=== PATIENT | female | born 1980 | race Caucasian/White ===

== ENCOUNTER 2016-12-23 19:01 | Inpatient (IN) | payer MEDICAID ==
[~2016-12-23] VITALS: Ht 167.6 cm; Wt 75.7 kg
[~2016-12-23 19:01] MED LIST: ALBUAER3 IN
[2016-12-23 20:21] LABS: Basophils # (auto) 0.1 uL; Basophils % (auto) 0.9 % (0.0-2.0); Eosinophils # (auto) 0.1 uL; Eosinophils % (auto) 0.8 % (0.0-7.0); Hematocrit 43.9 % (36.0-46.0); Hemoglobin 14.9 g/dL (12.2-16.2); Lymphocytes # (auto) 1.5 uL; Lymphocytes % (auto) 19.2 % (10.0-50.0); Mean Corpuscular Hemoglobin 29.5 pg (28.0-32.0); Mean Corpuscular Hgb Conc. 33.9 g/dL (32.0-36.0); Mean Corpuscular Volume 87.1 fL (80.0-100.0); Monocytes # (auto) 0.5 uL; Neutrophils # (auto) 5.8 uL; Neutrophils % (auto) 73.1 % (37.0-80.0); Nucleated Red Blood Cells % 0.1 %; Platelet Count (auto) 135 10^3/uL (140-450); Red Blood Cells 5.04 10^6/uL (4.0-5.20); Red Cell Distribution Width 14.9 % (11.8-14.3); White Blood Cell 7.9 10^3/uL (4.4-10.8)
[2016-12-23 20:35] LABS: Albumin 2.8 g/dL (3.4-5.0); BUN/Creatinine Ratio 11.9; Magnesium 2.1 mg/dL (1.6-2.6); Potassium 3.2 mmol/L (3.5-5.1); Total Protein 6.2 g/dL (6.4-8.2)
[2016-12-23] MEDS ORDERED: ASPirin 81 mg TAB PO ONE (21:00)
[2016-12-23] MEDS ORDERED: FUROSEMIDE 40 MG/4 ML VIAL IV ONE (21:30)
[2016-12-23 21:31] LABS: Urine Bacteria NONE SEEN /hpf (None Seen); Urine Blood Negative /uL (Negative); Urine Mucus FEW (None Seen); Urine Specific Gravity 1.021 (1.001-1.035); Urine WBC 2 /hpf (0 - 5)
[2016-12-23] MEDS ORDERED: POTASSIUM CHL 20 Meq TABLET PO ONE (21:45)
[2016-12-23] MEDS ORDERED: LORazepam 2MG/ML-1ML VIAL IV ONE ×2 (22:00)
[2016-12-23] MEDS ORDERED: MORPHINE SULFATE 10 MG/ML INJ 1ML SDV IV PRN (22:15)
[2016-12-23] MEDS ORDERED: HYDROcodone-ACET 5/325MG TAB PO PRN (22:15)
[2016-12-23] MEDS ORDERED: ACETAMINOPHEN 325 MG TAB PO PRN (22:15)
[2016-12-23] MEDS ORDERED: NITROGLYCERIN 0.4 MG SL TAB SL PRN (22:15)
[2016-12-23] MEDS ORDERED: ADEMPAS 2.5 MG PO SCH (22:15)
[2016-12-23] MEDS ORDERED: ENOXAPARIN SOD 100 MG/1 ML SYRINGE SC ONE (22:15)
[2016-12-23] MEDS ORDERED: ONDANSETRON HCL 4 MG/2 ML VIAL IV PRN (22:15)
[2016-12-23 22:30] VITALS: BP 111/75
[2016-12-24] MEDS: ALBUTEROL SULF 2.5 MG/0.5ML(0.5%) NEB SOLN NEB PRN ×3 (00:52→20:00)
[2016-12-24 05:15] LABS: Albumin 2.5 g/dL (3.4-5.0); BUN/Creatinine Ratio 11.1; Bilirubin, Total 0.7 mg/dL (0.2-1.0); Calcium 7.7 mg/dL (8.5-10.1); Potassium 3.2 mmol/L (3.5-5.1); Total Protein 5.4 g/dL (6.4-8.2)
[2016-12-24 05:38] LABS: Basophils # (auto) 0 uL; Basophils % (auto) 0.6 % (0.0-2.0); Eosinophils # (auto) 0.1 uL; Eosinophils % (auto) 1.1 % (0.0-7.0); Hematocrit 40.1 % (36.0-46.0); Hemoglobin 13.3 g/dL (12.2-16.2); Lymphocytes % (auto) 22.9 % (10.0-50.0); Mean Corpuscular Hemoglobin 28.8 pg (28.0-32.0); Mean Corpuscular Hgb Conc. 33.1 g/dL (32.0-36.0); Mean Corpuscular Volume 86.8 fL (80.0-100.0); Monocytes # (auto) 0.7 uL; Monocytes % (auto) 7.7 % (0.0-12.0); Neutrophils # (auto) 5.9 uL; Neutrophils % (auto) 67.7 % (37.0-80.0); Nucleated Red Blood Cells % 0.1 %; Platelet Count (auto) 126 10^3/uL (140-450); Red Blood Cells 4.62 10^6/uL (4.0-5.20); Red Cell Distribution Width 15.2 % (11.8-14.3); White Blood Cell 8.8 10^3/uL (4.4-10.8)
[2016-12-24] MEDS: [UNRECOGNIZED DRUG - OTHER] PO SCH (09:27)
[2016-12-24] MEDS: ENOXAPARIN SOD 40 MG/0.4 ML SYRINGE SC SCH (09:27)
[2016-12-24] MEDS: SPIRONOLACTONE 25 MG TAB PO SCH (09:27)
[2016-12-24] MEDS: ASPirin 81 mg TAB PO SCH (09:27)
[2016-12-24] MEDS: FUROSEMIDE 40 MG TAB PO SCH (09:27)
[2016-12-24] MEDS: FAMOTIDINE 20 MG TAB PO SCH ×2 (09:27→22:29)
[2016-12-24] MEDS ORDERED: diphenhdrAMINE HCL 50 MG/1 ML VL ONE (14:08)
[2016-12-24] MEDS: diphenhdrAMINE HCL 50 MG/1 ML VL IV PRN (14:57)
[2016-12-24] MEDS ORDERED: POTASSIUM CHL 10% (20 MEQ/15ML) 15ml ORAL SOLN PO ONE (17:15)
[2016-12-25] MEDS: LORazepam 2MG/ML-1ML VIAL IV PRN ×2 (00:14→17:15)
[2016-12-25] MEDS: ALBUTEROL SULF 2.5 MG/0.5ML(0.5%) NEB SOLN NEB PRN ×3 (05:45→21:58)
[2016-12-25 05:59] LABS: Basophils # (auto) 0 uL; Basophils % (auto) 0.7 % (0.0-2.0); Eosinophils # (auto) 0.1 uL; Eosinophils % (auto) 2.2 % (0.0-7.0); Hematocrit 40.2 % (36.0-46.0); Hemoglobin 13.3 g/dL (12.2-16.2); Lymphocytes # (auto) 1.7 uL; Lymphocytes % (auto) 25.3 % (10.0-50.0); Mean Corpuscular Hemoglobin 28.7 pg (28.0-32.0); Mean Corpuscular Hgb Conc. 33.2 g/dL (32.0-36.0); Mean Corpuscular Volume 86.5 fL (80.0-100.0); Monocytes # (auto) 0.5 uL; Monocytes % (auto) 7.5 % (0.0-12.0); Neutrophils # (auto) 4.3 uL; Neutrophils % (auto) 64.3 % (37.0-80.0); Platelet Count (auto) 129 10^3/uL (140-450); Red Blood Cells 4.64 10^6/uL (4.0-5.20); Red Cell Distribution Width 15.4 % (11.8-14.3); White Blood Cell 6.7 10^3/uL (4.4-10.8)
[2016-12-25 06:16] LABS: BUN/Creatinine Ratio 17.2; Calcium 7.8 mg/dL (8.5-10.1); Magnesium 2.1 mg/dL (1.6-2.6); Potassium 3.6 mmol/L (3.5-5.1)
[2016-12-25] MEDS: FUROSEMIDE 40 MG TAB PO SCH (10:00)
[2016-12-25] MEDS: SPIRONOLACTONE 25 MG TAB PO SCH (10:00)
[2016-12-25 10:09] LABS: INR 1.17 (0.9-1.15); Partial Thromboplastin Time 29.9 sec (22.64-33.71); Prothrombin Time 12.8 sec (9.37-12.3)
[2016-12-25] MEDS: ASPirin 81 mg TAB PO SCH (10:34)
[2016-12-25] MEDS: [UNRECOGNIZED DRUG - OTHER] PO SCH (10:34)
[2016-12-25] MEDS: FAMOTIDINE 20 MG TAB PO SCH ×2 (10:34→22:04)
[2016-12-25] MEDS: ENOXAPARIN SOD 40 MG/0.4 ML SYRINGE SC SCH (10:35)
[2016-12-25 11:01] LABS: Alcohol, Urine < 3.0 mg/dL (0-5); Amphetamine Screen, Urine POSITIVE (NEGATIVE); Barbiturate Scree,Urine NEGATIVE (NEGATIVE); Benzodiazephine Screen, Urine NEGATIVE (NEGATIVE); Cannabinoid Screen, Urine NEGATIVE (NEGATIVE); Cocaine Screen, Urine NEGATIVE (NEGATIVE); Opiate Scree,Urine NEGATIVE (NEGATIVE); Phencyclidine Screen, Urine NEGATIVE (NEGATIVE)
[2016-12-25 13:54] VITALS: BP 83/57
[2016-12-25] MEDS: diphenhdrAMINE HCL 50 MG/1 ML VL IV PRN (15:18)
[2016-12-26] VITALS (7 sets, daily range): BP systolic 91–100; BP diastolic 50–66
[2016-12-26] MEDS: TEMAZEPAM 15 MG CAP PO PRN (02:22)
[2016-12-26 05:24] LABS: Basophils # (auto) 0.1 uL; Basophils % (auto) 1.4 % (0.0-2.0); Eosinophils # (auto) 0.1 uL; Eosinophils % (auto) 2.1 % (0.0-7.0); Hematocrit 39.6 % (36.0-46.0); Hemoglobin 13.3 g/dL (12.2-16.2); Lymphocytes # (auto) 1.9 uL; Lymphocytes % (auto) 28.4 % (10.0-50.0); Mean Corpuscular Hgb Conc. 33.5 g/dL (32.0-36.0); Mean Corpuscular Volume 86.7 fL (80.0-100.0); Monocytes # (auto) 0.5 uL; Monocytes % (auto) 7.8 % (0.0-12.0); Neutrophils % (auto) 60.3 % (37.0-80.0); Nucleated Red Blood Cells % 0.1 %; Platelet Count (auto) 135 10^3/uL (140-450); Red Blood Cells 4.57 10^6/uL (4.0-5.20); Red Cell Distribution Width 15.4 % (11.8-14.3); White Blood Cell 6.6 10^3/uL (4.4-10.8)
[2016-12-26 05:47] LABS: Calcium 7.9 mg/dL (8.5-10.1); Magnesium 2.2 mg/dL (1.6-2.6); Potassium 3.7 mmol/L (3.5-5.1)
[2016-12-26] MEDS: SPIRONOLACTONE 25 MG TAB PO SCH (09:55)
[2016-12-26] MEDS: ENOXAPARIN SOD 40 MG/0.4 ML SYRINGE SC SCH (09:55)
[2016-12-26] MEDS: FAMOTIDINE 20 MG TAB PO SCH ×2 (09:55→22:10)
[2016-12-26] MEDS: FUROSEMIDE 40 MG TAB PO SCH (09:55)
[2016-12-26] MEDS: ASPirin 81 mg TAB PO SCH (09:55)
[2016-12-26] MEDS: [UNRECOGNIZED DRUG - OTHER] PO SCH (10:23)
[2016-12-26] MEDS: LORazepam 2MG/ML-1ML VIAL IV PRN ×2 (12:51→20:54)
[2016-12-26] MEDS ORDERED: IOHEXOL 300 MG/ML 100ML BOTTLE IJ ONE (14:42)
[2016-12-26] MEDS ORDERED: IOHEXOL 350 MG/ML 100ML IJ ONE (14:43)
[2016-12-27] VITALS (11 sets, daily range): BP systolic 85–100; BP diastolic 49–75
[2016-12-27] MEDS ORDERED: FUROSEMIDE 20 MG/2 ML VIAL ONE (03:51)
[2016-12-27] MEDS ORDERED: METOPROLOL TARTRATE 1MG/1ML-5ML VIAL IV ONE ×2 (03:53→04:00)
[2016-12-27] MEDS ORDERED: FUROSEMIDE 20 MG/2 ML VIAL IV ONE (04:00)
[2016-12-27 04:56] LABS: Basophils # (auto) 0 uL; Basophils % (auto) 0.7 % (0.0-2.0); Eosinophils # (auto) 0.1 uL; Hematocrit 40.8 % (36.0-46.0); Hemoglobin 13.4 g/dL (12.2-16.2); Lymphocytes # (auto) 1.9 uL; Lymphocytes % (auto) 27.5 % (10.0-50.0); Mean Corpuscular Hemoglobin 28.7 pg (28.0-32.0); Mean Corpuscular Hgb Conc. 32.9 g/dL (32.0-36.0); Mean Corpuscular Volume 87.1 fL (80.0-100.0); Monocytes # (auto) 0.5 uL; Neutrophils # (auto) 4.3 uL; Neutrophils % (auto) 62.8 % (37.0-80.0); Nucleated Red Blood Cells % 0.1 %; Platelet Count (auto) 143 10^3/uL (140-450); Red Blood Cells 4.68 10^6/uL (4.0-5.20); Red Cell Distribution Width 15.3 % (11.8-14.3); White Blood Cell 6.8 10^3/uL (4.4-10.8)
[2016-12-27 05:06] LABS: BUN/Creatinine Ratio 25.8; Potassium 3.9 mmol/L (3.5-5.1)
[2016-12-27 05:15] LABS: CRP High Sensitivity 0.25 mg/dL (< 0.3)
[2016-12-27] MEDS: FAMOTIDINE 20 MG TAB PO SCH ×2 (09:37→22:09)
[2016-12-27] MEDS: ASPirin 81 mg TAB PO SCH (09:37)
[2016-12-27] MEDS: FUROSEMIDE 40 MG TAB PO SCH (09:38)
[2016-12-27] MEDS: [UNRECOGNIZED DRUG - OTHER] PO SCH (09:42)
[2016-12-27] MEDS: SPIRONOLACTONE 25 MG TAB PO SCH (09:42)
[2016-12-27] MEDS: ENOXAPARIN SOD 40 MG/0.4 ML SYRINGE SC SCH (09:43)
[2016-12-27] MEDS: ALBUTEROL SULF 2.5 MG/0.5ML(0.5%) NEB SOLN NEB PRN ×3 (12:00→18:51)
[2016-12-27] MEDS ORDERED: ADEMPAS 2.5 MG PO SCH ×2 (14:00)
[2016-12-27] MEDS: ADEMPAS 2.5 MG PO SCH ×2 (14:43→22:09)
[2016-12-27] MEDS: TEMAZEPAM 15 MG CAP PO PRN (20:19)
[2016-12-28] VITALS (56 sets, daily range): BP systolic 84–113; BP diastolic 41–73
[2016-12-28] MEDS: LORazepam 2MG/ML-1ML VIAL IV PRN ×2 (01:30→22:41)
[2016-12-28] MEDS: NOREPINEPHRINE 8 MG/250ML KIT 250 ML IV SCH (05:00)
[2016-12-28] MEDS: ADEMPAS 2.5 MG PO SCH ×3 (06:04→22:13)
[2016-12-28] MEDS: SPIRONOLACTONE 25 MG TAB PO SCH (10:41)
[2016-12-28] MEDS: ASPirin 81 mg TAB PO SCH (10:41)
[2016-12-28] MEDS: FAMOTIDINE 20 MG TAB PO SCH ×2 (10:41→22:13)
[2016-12-28] MEDS: FUROSEMIDE 40 MG TAB PO SCH (10:41)
[2016-12-28] MEDS: ENOXAPARIN SOD 40 MG/0.4 ML SYRINGE SC SCH (10:42)
[2016-12-28] MEDS: [UNRECOGNIZED DRUG - OTHER] PO SCH (10:49)
[2016-12-28] MEDS ORDERED: ALPRAZolam 0.25 MG TAB ONE (13:42)
[2016-12-28] MEDS: ALBUTEROL SULF 2.5 MG/0.5ML(0.5%) NEB SOLN NEB PRN (13:50)
[2016-12-28] MEDS: ALPRAZolam 0.25 MG TAB PO SCH ×2 (13:52→22:13)
[2016-12-29] VITALS (85 sets, daily range): BP systolic 82–137; BP diastolic 33–80
[2016-12-29 00:44] LABS: BUN/Creatinine Ratio 15.4; Magnesium 2.3 mg/dL (1.6-2.6); Potassium 3.3 mmol/L (3.5-5.1)
[2016-12-29] MEDS: ADEMPAS 2.5 MG PO SCH ×3 (06:00→22:07)
[2016-12-29] MEDS: ALPRAZolam 0.25 MG TAB PO SCH (06:00)
[2016-12-29] MEDS: NOREPINEPHRINE 8 MG/250ML KIT 250 ML IV SCH ×2 (06:10→21:35)
[2016-12-29] MEDS: [UNRECOGNIZED DRUG - OTHER] PO SCH (10:00)
[2016-12-29] MEDS: SPIRONOLACTONE 25 MG TAB PO SCH (10:47)
[2016-12-29] MEDS: ASPirin 81 mg TAB PO SCH (10:48)
[2016-12-29] MEDS: FUROSEMIDE 40 MG TAB PO SCH (10:48)
[2016-12-29] MEDS: FAMOTIDINE 20 MG TAB PO SCH ×2 (10:48→22:07)
[2016-12-29] MEDS: ALPRAZolam 0.25 MG TAB PO PRN ×2 (10:49→19:57)
[2016-12-29] MEDS: ENOXAPARIN SOD 40 MG/0.4 ML SYRINGE SC SCH (13:17)
[2016-12-29] MEDS: ALBUTEROL SULF 2.5 MG/0.5ML(0.5%) NEB SOLN NEB PRN ×2 (14:00→18:00)
[2016-12-29] MEDS ORDERED: ALBUMIN 25% 100 ML IV SCH (14:00)
[2016-12-29] MEDS: PIPERACILLIN-TAZO 4.5GM 100 ML IV SCH ×2 (15:17→22:07)
[2016-12-29] MEDS: diphenhdrAMINE HCL 50 MG/1 ML VL IV PRN ×2 (15:47→22:36)
[2016-12-29] MEDS ORDERED: RIOC1TAB9 PO (19:39)
[2016-12-29] MEDS ORDERED: FURO40TA PO (19:39)
[2016-12-29] MEDS ORDERED: MACI1TAB2 PO (19:39)
[2016-12-29] MEDS ORDERED: DILTIAZEM HCL 25 MG/5 ML VIAL IV ONE (22:15)
[2016-12-30] VITALS (84 sets, daily range): BP systolic 84–131; BP diastolic 23–78
[2016-12-30] MEDS: ADEMPAS 2.5 MG PO SCH ×3 (06:09→22:09)
[2016-12-30] MEDS: PIPERACILLIN-TAZO 4.5GM 100 ML IV SCH ×3 (06:19→22:09)
[2016-12-30] MEDS: ALBUMIN 25% 100 ML IV SCH ×3 (08:37→22:11)
[2016-12-30] MEDS ORDERED: LIDOCAINE 1% HCL (LOCAL ANESTH.) INJ 20ML MDV ONE (09:56)
[2016-12-30] MEDS: ENOXAPARIN SOD 40 MG/0.4 ML SYRINGE SC SCH (10:00)
[2016-12-30] MEDS: [UNRECOGNIZED DRUG - OTHER] PO SCH (13:11)
[2016-12-30] MEDS: FAMOTIDINE 20 MG TAB PO SCH ×2 (13:12→22:09)
[2016-12-30] MEDS: FUROSEMIDE 40 MG TAB PO SCH (13:12)
[2016-12-30] MEDS: ASPirin 81 mg TAB PO SCH (13:12)
[2016-12-30] MEDS: SPIRONOLACTONE 25 MG TAB PO SCH (13:13)
[2016-12-30] MEDS: ALPRAZolam 0.25 MG TAB PO PRN (22:20)
[2016-12-31] VITALS (39 sets, daily range): BP systolic 76–124; BP diastolic 14–88
[2016-12-31] MEDS: TEMAZEPAM 15 MG CAP PO PRN (02:24)
[2016-12-31] MEDS: NOREPINEPHRINE 8 MG/250ML KIT 250 ML IV SCH ×2 (05:02→17:00)
[2016-12-31] MEDS: PIPERACILLIN-TAZO 4.5GM 100 ML IV SCH ×3 (06:14→23:00)
[2016-12-31] MEDS: ADEMPAS 2.5 MG PO SCH ×3 (06:14→23:00)
[2016-12-31] MEDS ORDERED: SPIR25TA88 PO (08:12)
[2016-12-31] MEDS ORDERED: OMEP20CA74 OR (08:12)
[2016-12-31] MEDS: ENOXAPARIN SOD 40 MG/0.4 ML SYRINGE SC SCH (09:53)
[2016-12-31] MEDS: diphenhdrAMINE HCL 50 MG/1 ML VL IV PRN ×2 (09:53→23:07)
[2016-12-31] MEDS: SPIRONOLACTONE 25 MG TAB PO SCH (09:54)
[2016-12-31] MEDS: FAMOTIDINE 20 MG TAB PO SCH ×2 (09:54→23:00)
[2016-12-31] MEDS: ASPirin 81 mg TAB PO SCH (09:54)
[2016-12-31] MEDS: [UNRECOGNIZED DRUG - OTHER] PO SCH (09:54)
[2016-12-31] MEDS ORDERED: MORPHINE SULFATE 10 MG/ML INJ 1ML SDV IV PRN (16:15)
[2016-12-31] MEDS ORDERED: TEMAZEPAM 15 MG CAP PO PRN (16:15)
[2016-12-31] MEDS ORDERED: HYDROcodone-ACET 5/325MG TAB PO PRN (16:15)
[2016-12-31 20:12] LABS: Basophils # (auto) 0.1 uL; Basophils % (auto) 1.1 % (0.0-2.0); Eosinophils # (auto) 0.3 uL; Eosinophils % (auto) 2.4 % (0.0-7.0); Hematocrit 42.8 % (36.0-46.0); Hemoglobin 14.1 g/dL (12.2-16.2); Lymphocytes # (auto) 2.5 uL; Lymphocytes % (auto) 20.9 % (10.0-50.0); Mean Corpuscular Hemoglobin 28.8 pg (28.0-32.0); Mean Corpuscular Hgb Conc. 32.9 g/dL (32.0-36.0); Mean Corpuscular Volume 87.7 fL (80.0-100.0); Monocytes # (auto) 0.7 uL; Monocytes % (auto) 6.1 % (0.0-12.0); Neutrophils # (auto) 8.2 uL; Neutrophils % (auto) 69.5 % (37.0-80.0); Platelet Count (auto) 194 10^3/uL (140-450); Red Blood Cells 4.88 10^6/uL (4.0-5.20); Red Cell Distribution Width 15.4 % (11.8-14.3); White Blood Cell 11.8 10^3/uL (4.4-10.8)
[2016-12-31] MEDS: ALBUTEROL SULF 2.5 MG/0.5ML(0.5%) NEB SOLN NEB PRN (20:19)
[2016-12-31 20:31] LABS: BUN/Creatinine Ratio 22.2; Calcium 8.1 mg/dL (8.5-10.1); Magnesium 2.3 mg/dL (1.6-2.6); Potassium 3.8 mmol/L (3.5-5.1)
[2016-12-31] MEDS: ALPRAZolam 0.25 MG TAB PO PRN (23:30)
[2017-01-01] VITALS (82 sets, daily range): BP systolic 68–143; BP diastolic 22–88
[2017-01-01] MEDS: diphenhdrAMINE HCL 50 MG/1 ML VL IV PRN (04:43)
[2017-01-01] MEDS: PIPERACILLIN-TAZO 4.5GM 100 ML IV SCH ×2 (05:14→14:02)
[2017-01-01] MEDS: ADEMPAS 2.5 MG PO SCH ×2 (05:15→14:02)
[2017-01-01] MEDS: ASPirin 81 mg TAB PO SCH (08:17)
[2017-01-01] MEDS: FAMOTIDINE 20 MG TAB PO SCH (08:17)
[2017-01-01] MEDS: ALPRAZolam 0.25 MG TAB PO PRN (08:17)
[2017-01-01] MEDS: [UNRECOGNIZED DRUG - OTHER] PO SCH (08:17)
[2017-01-01] MEDS ORDERED: ENOXAPARIN SOD 40 MG/0.4 ML SYRINGE SC SCH (10:00)
[2017-01-01] MEDS: NOREPINEPHRINE 8 MG/250ML KIT 250 ML IV SCH ×2 (10:23→20:15)
[2017-01-01] MEDS: PROMETHAZINE W/CODEINE 5 ML ORAL SYRUP PO PRN ×2 (14:03→20:11)
[2017-01-01 14:17] LABS: Alcohol, Urine < 3.0 mg/dL (0-5); Amphetamine Screen, Urine NEGATIVE (NEGATIVE); Barbiturate Scree,Urine NEGATIVE (NEGATIVE); Benzodiazephine Screen, Urine POSITIVE (NEGATIVE); Cannabinoid Screen, Urine NEGATIVE (NEGATIVE); Cocaine Screen, Urine NEGATIVE (NEGATIVE); Opiate Scree,Urine NEGATIVE (NEGATIVE); Phencyclidine Screen, Urine NEGATIVE (NEGATIVE)
== END 2017-01-01 20:30 | disposition short-term general hospital (02) | DRG 194 ==
LOC: EDBD 19:01 → ER 19:09 → TELE 19:10 → DOU IN ICU 12-26 23:05 → ICU WEST 01-01 15:44
PROVIDERS: ADMIT Nurse Practitioner; ATTEND Internal Medicine
PROC: 5A09357 Assistance with Respiratory Ventilation, Less than 24 Consecutive Hours, Continuous Positive Airway Pressure (ICD-10-PCS; 2016-12-23)
PROC: 5A09357 Assistance with Respiratory Ventilation, Less than 24 Consecutive Hours, Continuous Positive Airway Pressure (ICD-10-PCS; 2016-12-27)
PROC: 5A09357 Assistance with Respiratory Ventilation, Less than 24 Consecutive Hours, Continuous Positive Airway Pressure (ICD-10-PCS; 2016-12-28)
PROC: 5A09357 Assistance with Respiratory Ventilation, Less than 24 Consecutive Hours, Continuous Positive Airway Pressure (ICD-10-PCS; 2016-12-29)
PROC: 0W9G3ZZ Drainage of Peritoneal Cavity, Percutaneous Approach (ICD-10-PCS; principal; 2016-12-30)
PROC: 5A09357 Assistance with Respiratory Ventilation, Less than 24 Consecutive Hours, Continuous Positive Airway Pressure (ICD-10-PCS; 2016-12-30)
PROC: 5A09357 Assistance with Respiratory Ventilation, Less than 24 Consecutive Hours, Continuous Positive Airway Pressure (ICD-10-PCS; 2016-12-31)
PROC: 5A09357 Assistance with Respiratory Ventilation, Less than 24 Consecutive Hours, Continuous Positive Airway Pressure (ICD-10-PCS; 2017-01-01)
DX: I50.43 Acute on chronic combined systolic (congestive) and diastolic (congestive) heart failure (principal); J96.21 Acute and chronic respiratory failure with hypoxia; I21.4 Non-ST elevation (NSTEMI) myocardial infarction; I27.29 Other secondary pulmonary hypertension; D69.6 Thrombocytopenia, unspecified; R18.8 Other ascites; I27.81 Cor pulmonale (chronic); I95.9 Hypotension, unspecified; I27.20 Pulmonary hypertension, unspecified; J44.1 Chronic obstructive pulmonary disease with (acute) exacerbation; I07.1 Rheumatic tricuspid insufficiency; F15.10 Other stimulant abuse, uncomplicated; G47.00 Insomnia, unspecified; K74.60 Unspecified cirrhosis of liver; F17.210 Nicotine dependence, cigarettes, uncomplicated; F41.9 Anxiety disorder, unspecified; I50.82 Biventricular heart failure; Z91.19 Patient's noncompliance with other medical treatment and regimen; Z99.81 Dependence on supplemental oxygen
CPT/HCPCS: 36415; 36600; 49083; 71010; 71275; 76604; 76705; 76942; 80048; 80053; 80307; 81001; 82805; 82947; 83605; 83615; 83735; 83880; 84484; 84702; 85025; 85610; 85730; 86141; 87040; 87205; 89051; 93005; 93306; 94640; 94660; 96374; 96375; 99291; J2001; J2405; J2543

== ENCOUNTER 2017-04-07 17:48 | Inpatient (IN) | payer MEDICAID ==
[~2017-04-07] VITALS: Ht 167.6 cm; Wt 52.5 kg
[~2017-04-07 17:48] MED LIST changes: -ALBUAER3 IN; +FURO40TA PO; +MACI1TAB2 PO; +OMEP20CA74 OR; +RIOC1TAB9 PO; +SPIR25TA88 PO
[2017-04-07 18:28] LABS: Basophils # (auto) 0.1 uL; Eosinophils # (auto) 0.1 uL; Lymphocytes # (auto) 1.3 uL; Monocytes # (auto) 0.3 uL; Nucleated Red Blood Cells % 0.4 %
[2017-04-07 18:31] LABS: Basophils % (auto) 0.9 % (0.0-2.0); Hematocrit 39.2 % (36.0-46.0); Hemoglobin 12.8 g/dL (12.2-16.2); Lymphocytes % (auto) 17.7 % (10.0-50.0); Mean Corpuscular Hemoglobin 25.4 pg (28.0-32.0); Mean Corpuscular Hgb Conc. 32.7 g/dL (32.0-36.0); Mean Corpuscular Volume 77.6 fL (80.0-100.0); Monocytes % (auto) 4.4 % (0.0-12.0); Neutrophils # (auto) 5.7 uL; Platelet Count (auto) 218 10^3/uL (140-450); Red Blood Cells 5.05 10^6/uL (4.0-5.20); Red Cell Distribution Width 19.1 % (11.8-14.3); White Blood Cell 7.5 10^3/uL (4.4-10.8)
[2017-04-07 18:45] LABS: INR 1.1 (0.9-1.15); Partial Thromboplastin Time 32.2 sec (22.64-33.71)
[2017-04-07 19:01] LABS: BUN/Creatinine Ratio 20.7; Bilirubin, Total 0.4 mg/dL (0.2-1.0); Calcium 8.5 mg/dL (8.5-10.1); Magnesium 2.7 mg/dL (1.6-2.6); Total Protein 6.9 g/dL (6.4-8.2)
[2017-04-07 19:07] LABS: Potassium 2.8 mmol/L (3.5-5.1)
[2017-04-07] MEDS ORDERED: ASPirin 81 mg TAB PO ONE (19:30)
[2017-04-07] MEDS ORDERED: POTASSIUM CHL 10% (20 MEQ/15ML) 15ml ORAL SOLN PO ONE (19:30)
[2017-04-07] MEDS ORDERED: POTASSIUM CHL 20 Meq TABLET PO ONE ×2 (20:00→20:02)
[2017-04-07] MEDS ORDERED: KETOROLAC TROMETH 30 MG/ML 1ML VIAL IV ONE (20:30)
[2017-04-07] MEDS ORDERED: ACETAMINOPHEN 325 MG TAB PO PRN (23:15)
[2017-04-07] MEDS ORDERED: NITROGLYCERIN 0.4 MG SL TAB SL PRN (23:15)
[2017-04-07] MEDS ORDERED: FUROSEMIDE 20 MG/2 ML VIAL IV ONE (23:15)
[2017-04-07] MEDS ORDERED: MORPHINE SULFATE 4 MG/ML SYR/VIAL IV PRN (23:15)
[2017-04-07 23:28] VITALS: BP 107/76
[2017-04-07] MEDS: DOPamine 1600MCG/ML D5W 250 ML IV SCH (23:30)
[2017-04-08 00:21] VITALS: BP 113/70
[2017-04-08] MEDS: MORPHINE SULFATE 4 MG/ML SYR/VIAL IV PRN ×4 (00:28→22:52)
[2017-04-08] MEDS: ONDANSETRON HCL 4 MG/2 ML VIAL IV PRN ×3 (00:29→22:52)
[2017-04-08 02:13] VITALS: BP 110/79
[2017-04-08] MEDS: RIOCIGUAT 2.5 MG PO SCH ×3 (06:00→22:30)
[2017-04-08 06:02] LABS: Eosinophils # (auto) 0.1 uL; Hemoglobin 12.7 g/dL (12.2-16.2); Lymphocytes # (auto) 1.1 uL; Mean Corpuscular Volume 78.8 fL (80.0-100.0); Monocytes # (auto) 0.3 uL; Neutrophils # (auto) 5.4 uL; White Blood Cell 6.9 10^3/uL (4.4-10.8)
[2017-04-08 06:04] LABS: Basophils # (auto) 0 uL; Basophils % (auto) 0.6 % (0.0-2.0); Hematocrit 39.5 % (36.0-46.0); Lymphocytes % (auto) 15.3 % (10.0-50.0); Mean Corpuscular Hemoglobin 25.3 pg (28.0-32.0); Monocytes % (auto) 4.1 % (0.0-12.0); Nucleated Red Blood Cells % 0.3 %; Platelet Count (auto) 210 10^3/uL (140-450); Red Blood Cells 5.02 10^6/uL (4.0-5.20); Red Cell Distribution Width 19.3 % (11.8-14.3)
[2017-04-08 06:08] LABS: Albumin 2.9 g/dL (3.4-5.0); Calcium 8.6 mg/dL (8.5-10.1)
[2017-04-08 06:10] LABS: BUN/Creatinine Ratio 22.7
[2017-04-08 06:38] LABS: Bilirubin, Total 0.3 mg/dL (0.2-1.0); Total Protein 6.4 g/dL (6.4-8.2)
[2017-04-08] MEDS ORDERED: SPIRONOLACTONE 25 MG TAB PO SCH (10:00)
[2017-04-08] MEDS: MACITENTAN 10 MG PO SCH (10:00)
[2017-04-08] MEDS ORDERED: POTASSIUM CHL 20 Meq TABLET PO ONE (11:15)
[2017-04-08] MEDS ORDERED: SPIRONOLACTONE 25 MG TAB PO ONE (11:45)
[2017-04-08] MEDS: HEPARIN SODIUM (PORCINE) 5000 UNITS/ML 1ML VIAL SC SCH ×2 (11:52→22:30)
[2017-04-08] MEDS: FUROSEMIDE 40 MG TAB PO SCH (11:53)
[2017-04-08] MEDS: PANTOPRAZOLE 40 MG TAB PO SCH (11:53)
[2017-04-08] MEDS: ASPirin 81 mg TAB PO SCH (11:53)
[2017-04-08] MEDS: DOPamine 1600MCG/ML D5W 250 ML IV SCH (17:16)
[2017-04-09] MEDS: RIOCIGUAT 2.5 MG PO SCH ×3 (06:00→21:55)
[2017-04-09 06:01] LABS: Basophils # (auto) 0.1 uL; Eosinophils # (auto) 0.1 uL; Neutrophils # (auto) 6.8 uL
[2017-04-09 06:03] LABS: Basophils % (auto) 0.9 % (0.0-2.0); Hematocrit 40.2 % (36.0-46.0); Hemoglobin 13.1 g/dL (12.2-16.2); Lymphocytes # (auto) 1.6 uL; Lymphocytes % (auto) 17.6 % (10.0-50.0); Mean Corpuscular Hemoglobin 25.7 pg (28.0-32.0); Mean Corpuscular Hgb Conc. 32.5 g/dL (32.0-36.0); Monocytes # (auto) 0.5 uL; Neutrophils % (auto) 74.5 % (37.0-80.0); Nucleated Red Blood Cells % 0.3 %; Platelet Count (auto) 200 10^3/uL (140-450); Red Blood Cells 5.09 10^6/uL (4.0-5.20); Red Cell Distribution Width 19.5 % (11.8-14.3); White Blood Cell 9.1 10^3/uL (4.4-10.8)
[2017-04-09 06:38] LABS: Albumin 2.6 g/dL (3.4-5.0); BUN/Creatinine Ratio 24.8; Bilirubin, Total 0.3 mg/dL (0.2-1.0); Magnesium 2.3 mg/dL (1.6-2.6); Phosphorus 4.8 mg/dL (2.5-4.90); Potassium 3.3 mmol/L (3.5-5.1); Uric Acid 13.1 mg/dL (2.6-6.0)
[2017-04-09] MEDS: MORPHINE SULFATE 4 MG/ML SYR/VIAL IV PRN ×2 (07:30→22:08)
[2017-04-09] MEDS: ONDANSETRON HCL 4 MG/2 ML VIAL IV PRN (07:30)
[2017-04-09] MEDS ORDERED: IOHEXOL 350 MG/ML 100ML IJ ONE (09:22)
[2017-04-09] MEDS ORDERED: LIDOCAINE 2%HCL (LOCAL ANESTH.) INJ 20ML MDV ONE (09:22)
[2017-04-09] MEDS ORDERED: fentaNYL CITRATE 100 MCG/2 ML VL ONE (10:09)
[2017-04-09] MEDS ORDERED: MIDAZOLAM HCL 1MG/1ML-2 ML VIAL ONE (10:09)
[2017-04-09] MEDS ORDERED: SODIUM CHL 0.9% 50 ML ONE (11:04)
[2017-04-09] MEDS ORDERED: NITROGLYCERIN 0.4 MG SL TAB SL PRN (12:15)
[2017-04-09] MEDS ORDERED: MORPHINE SULFATE 4 MG/ML SYR/VIAL IV PRN (12:15)
[2017-04-09 14:25] VITALS: BP 114/81
[2017-04-09] MEDS: FUROSEMIDE 40 MG TAB PO SCH (14:50)
[2017-04-09] MEDS: MACITENTAN 10 MG PO SCH (14:50)
[2017-04-09] MEDS: SPIRONOLACTONE 25 MG TAB PO SCH (14:50)
[2017-04-09] MEDS: ASPirin 81 mg TAB PO SCH (14:50)
[2017-04-09] MEDS: PANTOPRAZOLE 40 MG TAB PO SCH (14:50)
[2017-04-09] MEDS: HYDROcodone-ACET 5/325MG TAB PO PRN (14:53)
[2017-04-09 16:14] VITALS: BP 99/74
[2017-04-09] MEDS: HEPARIN SODIUM (PORCINE) 5000 UNITS/ML 1ML VIAL SC SCH ×2 (17:00→22:10)
[2017-04-09] MEDS: LORazepam 2MG/ML-1ML VIAL IV PRN (17:55)
[2017-04-09] MEDS: CALCIUM ACETATE 667 MG CAP PO SCH (19:30)
[2017-04-09] MEDS ORDERED: SILDENAFIL CITRATE 20 MG TAB PO SCH (20:00)
[2017-04-09 20:06] VITALS: BP 91/43
[2017-04-09 20:59] VITALS: BP 91/43
[2017-04-09] MEDS: TEMAZEPAM 15 MG CAP PO PRN (22:08)
[2017-04-09 23:52] VITALS: BP 100/52
[2017-04-10] MEDS: DOPamine 1600MCG/ML D5W 250 ML IV SCH ×3 (03:11→21:58)
[2017-04-10 04:00] VITALS: BP 101/66
[2017-04-10] MEDS: MORPHINE SULFATE 4 MG/ML SYR/VIAL IV PRN ×3 (05:36→17:51)
[2017-04-10 05:37] LABS: Basophils # (auto) 0.1 uL; Eosinophils # (auto) 0.1 uL; Lymphocytes # (auto) 1.5 uL; Lymphocytes % (auto) 15.6 % (10.0-50.0); Monocytes # (auto) 0.6 uL; White Blood Cell 9.8 10^3/uL (4.4-10.8)
[2017-04-10 05:40] LABS: Basophils % (auto) 0.7 % (0.0-2.0); Eosinophils % (auto) 1.2 % (0.0-7.0); Hematocrit 37.3 % (36.0-46.0); Hemoglobin 12.3 g/dL (12.2-16.2); Mean Corpuscular Hemoglobin 25.9 pg (28.0-32.0); Mean Corpuscular Hgb Conc. 32.9 g/dL (32.0-36.0); Mean Corpuscular Volume 78.8 fL (80.0-100.0); Monocytes % (auto) 6.3 % (0.0-12.0); Neutrophils # (auto) 7.4 uL; Neutrophils % (auto) 76.2 % (37.0-80.0); Nucleated Red Blood Cells % 0.2 %; Platelet Count (auto) 203 10^3/uL (140-450); Red Blood Cells 4.74 10^6/uL (4.0-5.20); Red Cell Distribution Width 19.8 % (11.8-14.3)
[2017-04-10] MEDS: RIOCIGUAT 2.5 MG PO SCH ×3 (06:00→22:00)
[2017-04-10 06:21] LABS: Albumin 2.4 g/dL (3.4-5.0); BUN/Creatinine Ratio 29.6; Calcium 8.3 mg/dL (8.5-10.1); Total Protein 5.5 g/dL (6.4-8.2)
[2017-04-10 06:46] LABS: Bilirubin, Total 0.4 mg/dL (0.2-1.0); Potassium 3.9 mmol/L (3.5-5.1)
[2017-04-10 08:00] VITALS: BP 108/62
[2017-04-10] MEDS: SILDENAFIL CITRATE 20 MG TAB PO SCH ×3 (08:25→21:09)
[2017-04-10] MEDS: MACITENTAN 10 MG PO SCH (08:26)
[2017-04-10] MEDS: CALCIUM ACETATE 667 MG CAP PO SCH ×3 (08:30→17:48)
[2017-04-10] MEDS: ONDANSETRON HCL 4 MG/2 ML VIAL IV PRN ×4 (09:09→21:08)
[2017-04-10] MEDS ORDERED: DIP25C PO (09:22)
[2017-04-10] MEDS: SPIRONOLACTONE 25 MG TAB PO SCH (10:00)
[2017-04-10] MEDS: FUROSEMIDE 40 MG TAB PO SCH (10:00)
[2017-04-10] MEDS: PANTOPRAZOLE 40 MG TAB PO SCH (10:18)
[2017-04-10] MEDS: HEPARIN SODIUM (PORCINE) 5000 UNITS/ML 1ML VIAL SC SCH ×2 (10:19→21:58)
[2017-04-10] MEDS: ASPirin 81 mg TAB PO SCH (10:21)
[2017-04-10 11:17] LABS: Urine Bacteria NONE SEEN /hpf (None Seen); Urine Blood 1+ /uL (Negative); Urine Mucus FEW (None Seen); Urine WBC 8 /hpf (0 - 5)
[2017-04-10 12:00] VITALS: BP 101/63
[2017-04-10 16:00] VITALS: BP 95/76
[2017-04-10 20:00] VITALS: BP 102/61
[2017-04-10 21:46] VITALS: BP 102/61
[2017-04-10] MEDS: TEMAZEPAM 15 MG CAP PO PRN (22:06)
[2017-04-11] VITALS (7 sets, daily range): BP systolic 90–105; BP diastolic 48–80
[2017-04-11] MEDS: LORazepam 2MG/ML-1ML VIAL IV PRN
[2017-04-11 05:47] LABS: Basophils # (auto) 0.1 uL; Eosinophils # (auto) 0.1 uL; Lymphocytes # (auto) 1.5 uL; Monocytes # (auto) 0.5 uL
[2017-04-11 05:51] LABS: Basophils % (auto) 0.7 % (0.0-2.0); Eosinophils % (auto) 1.8 % (0.0-7.0); Hematocrit 37.6 % (36.0-46.0); Lymphocytes % (auto) 17.8 % (10.0-50.0); Mean Corpuscular Hemoglobin 25.2 pg (28.0-32.0); Mean Corpuscular Hgb Conc. 31.9 g/dL (32.0-36.0); Mean Corpuscular Volume 79.1 fL (80.0-100.0); Monocytes % (auto) 5.9 % (0.0-12.0); Neutrophils % (auto) 73.8 % (37.0-80.0); Nucleated Red Blood Cells % 0.1 %; Platelet Count (auto) 203 10^3/uL (140-450); Red Blood Cells 4.75 10^6/uL (4.0-5.20); Red Cell Distribution Width 19.5 % (11.8-14.3); White Blood Cell 8.2 10^3/uL (4.4-10.8)
[2017-04-11 06:00] LABS: Calcium 7.9 mg/dL (8.5-10.1); Magnesium 2.2 mg/dL (1.6-2.6); Phosphorus 3.5 mg/dL (2.5-4.90); Potassium 3.6 mmol/L (3.5-5.1)
[2017-04-11] MEDS: RIOCIGUAT 2.5 MG PO SCH ×3 (06:00→22:00)
[2017-04-11] MEDS: MORPHINE SULFATE 4 MG/ML SYR/VIAL IV PRN ×5 (06:40→21:44)
[2017-04-11] MEDS: SILDENAFIL CITRATE 20 MG TAB PO SCH ×2 (08:37→20:33)
[2017-04-11] MEDS: CALCIUM ACETATE 667 MG CAP PO SCH ×3 (08:37→18:00)
[2017-04-11] MEDS: PANTOPRAZOLE 40 MG TAB PO SCH (09:57)
[2017-04-11] MEDS: MACITENTAN 10 MG PO SCH (09:57)
[2017-04-11] MEDS: SPIRONOLACTONE 25 MG TAB PO SCH (09:57)
[2017-04-11] MEDS: ASPirin 81 mg TAB PO SCH (09:57)
[2017-04-11] MEDS: HEPARIN SODIUM (PORCINE) 5000 UNITS/ML 1ML VIAL SC SCH ×2 (09:58→22:04)
[2017-04-11] MEDS: FUROSEMIDE 40 MG TAB PO SCH (11:59)
[2017-04-11] MEDS ORDERED: SILDENAFIL CITRATE 20 MG TAB PO SCH (15:30)
[2017-04-11] MEDS: ONDANSETRON HCL 4 MG/2 ML VIAL IV PRN ×2 (15:36→21:43)
[2017-04-11] MEDS: DOPamine 1600MCG/ML D5W 250 ML IV SCH (19:00)
[2017-04-11] MEDS: TEMAZEPAM 15 MG CAP PO PRN (21:43)
[2017-04-12] VITALS (7 sets, daily range): BP systolic 92–102; BP diastolic 50–70
[2017-04-12] MEDS: HYDROcodone-ACET 5/325MG TAB PO PRN (05:07)
[2017-04-12 05:47] LABS: Eosinophils # (auto) 0.2 uL; Lymphocytes # (auto) 1.6 uL; Red Cell Distribution Width 19.7 % (11.8-14.3)
[2017-04-12 05:51] LABS: Basophils # (auto) 0 uL; Basophils % (auto) 0.5 % (0.0-2.0); Eosinophils % (auto) 2.4 % (0.0-7.0); Hematocrit 38.8 % (36.0-46.0); Hemoglobin 12.6 g/dL (12.2-16.2); Lymphocytes % (auto) 17.8 % (10.0-50.0); Mean Corpuscular Hemoglobin 25.5 pg (28.0-32.0); Mean Corpuscular Hgb Conc. 32.4 g/dL (32.0-36.0); Mean Corpuscular Volume 78.8 fL (80.0-100.0); Monocytes # (auto) 0.5 uL; Neutrophils # (auto) 6.7 uL; Neutrophils % (auto) 73.3 % (37.0-80.0); Nucleated Red Blood Cells % 0.2 %; Platelet Count (auto) 246 10^3/uL (140-450); Red Blood Cells 4.92 10^6/uL (4.0-5.20); White Blood Cell 9.2 10^3/uL (4.4-10.8)
[2017-04-12 05:55] LABS: Albumin 2.4 g/dL (3.4-5.0); BUN/Creatinine Ratio 28.9; Bilirubin, Total 0.5 mg/dL (0.2-1.0); Magnesium 2.3 mg/dL (1.6-2.6); Phosphorus 3.6 mg/dL (2.5-4.90); Potassium 4.2 mmol/L (3.5-5.1); Total Protein 5.8 g/dL (6.4-8.2)
[2017-04-12] MEDS: RIOCIGUAT 2.5 MG PO SCH ×3 (06:00→21:34)
[2017-04-12] MEDS: CALCIUM ACETATE 667 MG CAP PO SCH ×3 (08:00→18:00)
[2017-04-12] MEDS ORDERED: DIGO0.1262 PO (09:16)
[2017-04-12] MEDS: MORPHINE SULFATE 4 MG/ML SYR/VIAL IV PRN ×3 (09:38→21:36)
[2017-04-12] MEDS: MACITENTAN 10 MG PO SCH (10:47)
[2017-04-12] MEDS: ONDANSETRON HCL 4 MG/2 ML VIAL IV PRN (10:54)
[2017-04-12] MEDS: SPIRONOLACTONE 25 MG TAB PO SCH (10:56)
[2017-04-12] MEDS: SILDENAFIL CITRATE 20 MG TAB PO SCH ×3 (10:57→20:00)
[2017-04-12] MEDS: PANTOPRAZOLE 40 MG TAB PO SCH (10:57)
[2017-04-12] MEDS: ASPirin 81 mg TAB PO SCH (10:57)
[2017-04-12] MEDS: FUROSEMIDE 40 MG TAB PO SCH (10:59)
[2017-04-12] MEDS: HEPARIN SODIUM (PORCINE) 5000 UNITS/ML 1ML VIAL SC SCH ×2 (11:04→21:34)
[2017-04-12] MEDS: DOPamine 1600MCG/ML D5W 250 ML IV SCH (12:26)
[2017-04-12] MEDS ORDERED: MORPHINE SULFATE 4 MG/ML SYR/VIAL ONE (21:08)
[2017-04-12] MEDS ORDERED: ONDANSETRON HCL 4 MG/2 ML VIAL ONE (21:08)
[2017-04-13] VITALS: BP 94/50
[2017-04-13] MEDS: ONDANSETRON HCL 4 MG/2 ML VIAL IV PRN ×4 (00:35→21:28)
[2017-04-13 02:00] VITALS: BP 100/60
[2017-04-13 04:00] VITALS: BP 98/60
[2017-04-13] MEDS: RIOCIGUAT 2.5 MG PO SCH ×3 (05:16→22:00)
[2017-04-13 05:48] LABS: Basophils # (auto) 0.1 uL; Hemoglobin 12.2 g/dL (12.2-16.2); Lymphocytes # (auto) 1.3 uL; Monocytes # (auto) 0.5 uL; Platelet Count (auto) 241 10^3/uL (140-450)
[2017-04-13 05:50] LABS: Eosinophils # (auto) 0.3 uL; Eosinophils % (auto) 3.1 % (0.0-7.0); Hematocrit 37.5 % (36.0-46.0); Lymphocytes % (auto) 15.9 % (10.0-50.0); Mean Corpuscular Hemoglobin 25.4 pg (28.0-32.0); Mean Corpuscular Hgb Conc. 32.5 g/dL (32.0-36.0); Mean Corpuscular Volume 78.1 fL (80.0-100.0); Monocytes % (auto) 5.6 % (0.0-12.0); Neutrophils # (auto) 6.2 uL; Neutrophils % (auto) 74.4 % (37.0-80.0); Red Cell Distribution Width 19.4 % (11.8-14.3); White Blood Cell 8.3 10^3/uL (4.4-10.8)
[2017-04-13 06:30] LABS: BUN/Creatinine Ratio 27.3; Phosphorus 3.6 mg/dL (2.5-4.90); Potassium 4.4 mmol/L (3.5-5.1)
[2017-04-13] MEDS: CALCIUM ACETATE 667 MG CAP PO SCH ×3 (08:44→18:18)
[2017-04-13] MEDS: SILDENAFIL CITRATE 20 MG TAB PO SCH ×3 (08:44→20:32)
[2017-04-13] MEDS: MORPHINE SULFATE 4 MG/ML SYR/VIAL IV PRN ×3 (08:56→21:28)
[2017-04-13 09:41] LABS: INR 1.08 (0.9-1.15); Prothrombin Time 11.8 sec (9.37-12.3)
[2017-04-13] MEDS: HEPARIN SODIUM (PORCINE) 5000 UNITS/ML 1ML VIAL SC SCH ×2 (10:00→22:00)
[2017-04-13] MEDS: MACITENTAN 10 MG PO SCH (10:00)
[2017-04-13] MEDS: ASPirin 81 mg TAB PO SCH (11:22)
[2017-04-13] MEDS: PANTOPRAZOLE 40 MG TAB PO SCH (11:23)
[2017-04-13] MEDS: SPIRONOLACTONE 25 MG TAB PO SCH (11:23)
[2017-04-13] MEDS: FUROSEMIDE 40 MG TAB PO SCH (11:23)
[2017-04-13 12:00] VITALS: BP 110/90
[2017-04-13 13:46] LABS: Protein, Urine 46.9 mg/dL (0.0-11.9)
[2017-04-13] MEDS: LORazepam 2MG/ML-1ML VIAL IV PRN (14:06)
[2017-04-13] MEDS: DOPamine 1600MCG/ML D5W 250 ML IV SCH (14:06)
[2017-04-13 16:00] VITALS: BP 98/60
[2017-04-13 20:06] VITALS: BP 118/80
[2017-04-13] MEDS: TEMAZEPAM 15 MG CAP PO PRN (22:37)
[2017-04-14] VITALS (7 sets, daily range): BP systolic 110–121; BP diastolic 78–95
[2017-04-14] MEDS: LORazepam 2MG/ML-1ML VIAL IV PRN ×3 (01:04→21:18)
[2017-04-14] MEDS: ONDANSETRON HCL 4 MG/2 ML VIAL IV PRN ×4 (03:17→21:18)
[2017-04-14] MEDS: MORPHINE SULFATE 4 MG/ML SYR/VIAL IV PRN ×2 (03:18→09:14)
[2017-04-14] MEDS: RIOCIGUAT 2.5 MG PO SCH ×3 (06:00→22:00)
[2017-04-14 07:44] LABS: Basophils # (auto) 0.1 uL; Neutrophils # (auto) 6.8 uL; Nucleated Red Blood Cells % 0.1 %
[2017-04-14 07:48] LABS: BUN/Creatinine Ratio 27.2; Calcium 8.2 mg/dL (8.5-10.1); Magnesium 2.3 mg/dL (1.6-2.6); Phosphorus 3.5 mg/dL (2.5-4.90); Potassium 4.5 mmol/L (3.5-5.1)
[2017-04-14 07:52] LABS: Basophils % (auto) 0.6 % (0.0-2.0); Eosinophils # (auto) 0.3 uL; Eosinophils % (auto) 2.8 % (0.0-7.0); Hematocrit 37.9 % (36.0-46.0); Hemoglobin 12.3 g/dL (12.2-16.2); Lymphocytes # (auto) 1.4 uL; Lymphocytes % (auto) 15.4 % (10.0-50.0); Mean Corpuscular Hemoglobin 25.2 pg (28.0-32.0); Mean Corpuscular Hgb Conc. 32.4 g/dL (32.0-36.0); Mean Corpuscular Volume 77.7 fL (80.0-100.0); Monocytes # (auto) 0.6 uL; Monocytes % (auto) 6.3 % (0.0-12.0); Neutrophils % (auto) 74.9 % (37.0-80.0); Platelet Count (auto) 246 10^3/uL (140-450); Red Blood Cells 4.87 10^6/uL (4.0-5.20); Red Cell Distribution Width 19.4 % (11.8-14.3)
[2017-04-14] MEDS: FUROSEMIDE 40 MG TAB PO SCH (09:14)
[2017-04-14] MEDS: SILDENAFIL CITRATE 20 MG TAB PO SCH ×3 (09:14→19:57)
[2017-04-14] MEDS: ASPirin 81 mg TAB PO SCH (09:14)
[2017-04-14] MEDS: CALCIUM ACETATE 667 MG CAP PO SCH ×3 (09:14→18:24)
[2017-04-14] MEDS: PANTOPRAZOLE 40 MG TAB PO SCH (09:15)
[2017-04-14] MEDS: MACITENTAN 10 MG PO SCH (09:15)
[2017-04-14] MEDS: SPIRONOLACTONE 25 MG TAB PO SCH (09:15)
[2017-04-14] MEDS: DOPamine 1600MCG/ML D5W 250 ML IV SCH (09:25)
[2017-04-14] MEDS ORDERED: ALBUMIN 25% 100 ML IV ONE (11:30)
[2017-04-14] MEDS: EPOPROSTENOL IV SCH (12:31)
[2017-04-14] MEDS: HYDROcodone-ACET 10/325MG TAB PO PRN (16:41)
[2017-04-15] VITALS: BP 130/79
[2017-04-15] MEDS: HYDROcodone-ACET 10/325MG TAB PO PRN ×3 (00:02→22:59)
[2017-04-15] MEDS: TEMAZEPAM 15 MG CAP PO PRN ×2 (00:04→22:59)
[2017-04-15 04:00] VITALS: BP 98/56
[2017-04-15] MEDS: DOPamine 1600MCG/ML D5W 250 ML IV SCH ×2 (05:50→22:58)
[2017-04-15] MEDS: RIOCIGUAT 2.5 MG PO SCH ×3 (06:00→20:33)
[2017-04-15 06:25] LABS: BUN/Creatinine Ratio 20.7; Calcium 8.1 mg/dL (8.5-10.1); Potassium 4.2 mmol/L (3.5-5.1)
[2017-04-15] MEDS: ONDANSETRON HCL 4 MG/2 ML VIAL IV PRN ×2 (07:49→22:58)
[2017-04-15 08:00] VITALS: BP 90/40
[2017-04-15] MEDS: CALCIUM ACETATE 667 MG CAP PO SCH ×3 (08:00→18:28)
[2017-04-15] MEDS: SILDENAFIL CITRATE 20 MG TAB PO SCH ×3 (09:22→20:32)
[2017-04-15] MEDS: PANTOPRAZOLE 40 MG TAB PO SCH (09:55)
[2017-04-15] MEDS: LORazepam 2MG/ML-1ML VIAL IV PRN ×2 (09:55→20:34)
[2017-04-15] MEDS: EPOPROSTENOL IV SCH (09:56)
[2017-04-15] MEDS: FUROSEMIDE 40 MG TAB PO SCH (09:56)
[2017-04-15] MEDS: MACITENTAN 10 MG PO SCH (09:56)
[2017-04-15] MEDS ORDERED: PATIENTS OWN MEDICATION IV SCH (10:00)
[2017-04-15 12:05] VITALS: BP 110/70
[2017-04-15 20:00] VITALS: BP 110/80
[2017-04-16] VITALS: BP 110/75
[2017-04-16] MEDS: LORazepam 2MG/ML-1ML VIAL IV PRN ×2 (03:02→16:06)
[2017-04-16 04:00] VITALS: BP 100/80
[2017-04-16] MEDS: RIOCIGUAT 2.5 MG PO SCH ×2 (06:00→14:00)
[2017-04-16] MEDS: ONDANSETRON HCL 4 MG/2 ML VIAL IV PRN ×2 (07:52→13:26)
[2017-04-16] MEDS: CALCIUM ACETATE 667 MG CAP PO SCH ×2 (08:00→12:00)
[2017-04-16] MEDS ORDERED: fentaNYL CITRATE 100 MCG/2 ML VL ONE (09:15)
[2017-04-16] MEDS ORDERED: MIDAZOLAM HCL 1MG/1ML-2 ML VIAL ONE (09:15)
[2017-04-16] MEDS: EPOPROSTENOL IV SCH (10:00)
[2017-04-16] MEDS: FUROSEMIDE 40 MG TAB PO SCH (10:00)
[2017-04-16] MEDS: PANTOPRAZOLE 40 MG TAB PO SCH (10:31)
[2017-04-16] MEDS: SILDENAFIL CITRATE 20 MG TAB PO SCH ×2 (10:32→15:27)
[2017-04-16] MEDS: MACITENTAN 10 MG PO SCH (11:16)
[2017-04-16 12:00] VITALS: BP 102/73
[2017-04-16] MEDS: HYDROcodone-ACET 10/325MG TAB PO PRN (12:57)
[2017-04-16] MEDS ORDERED: DIGO0.1262 PO (15:03)
[2017-04-16] MEDS ORDERED: OMEP20CA74 OR (15:03)
[2017-04-16] MEDS ORDERED: ALPR0.25 PO (15:03)
[2017-04-16] MEDS ORDERED: IBUP800T24 PO (15:03)
[2017-04-16] MEDS ORDERED: MACI1TAB2 PO (15:03)
[2017-04-16 16:34] VITALS: BP 110/72
== END 2017-04-16 18:15 | disposition home or self-care (01) | DRG 951 ==
LOC: ER 17:48 → EDBD 17:48 → TELE 17:49 → DOU IN ICU 04-09 20:08
PROVIDERS: ADMIT Nurse Practitioner; ATTEND Internal Medicine
PROC: 5A09457 Assistance with Respiratory Ventilation, 24-96 Consecutive Hours, Continuous Positive Airway Pressure (ICD-10-PCS; 2017-04-07)
PROC: 0W9G30Z Drainage of Peritoneal Cavity with Drainage Device, Percutaneous Approach (ICD-10-PCS; 2017-04-08)
PROC: 4A023N6 Measurement of Cardiac Sampling and Pressure, Right Heart, Percutaneous Approach (ICD-10-PCS; principal; 2017-04-09)
PROC: B2111ZZ Fluoroscopy of Multiple Coronary Arteries using Low Osmolar Contrast (ICD-10-PCS; 2017-04-09)
PROC: 0W9G30Z Drainage of Peritoneal Cavity with Drainage Device, Percutaneous Approach (ICD-10-PCS; 2017-04-16)
PROC: 0WHG33Z Insertion of Infusion Device into Peritoneal Cavity, Percutaneous Approach (ICD-10-PCS; 2017-04-16)
DX: I13.0 Hypertensive heart and chronic kidney disease with heart failure and stage 1 through stage 4 chronic kidney disease, or unspecified chronic kidney disease (principal); N17.0 Acute kidney failure with tubular necrosis; J96.21 Acute and chronic respiratory failure with hypoxia; E43 Unspecified severe protein-calorie malnutrition; I31.3 Pericardial effusion (noninflammatory); I27.29 Other secondary pulmonary hypertension; E83.39 Other disorders of phosphorus metabolism; K72.90 Hepatic failure, unspecified without coma; J44.1 Chronic obstructive pulmonary disease with (acute) exacerbation; I50.33 Acute on chronic diastolic (congestive) heart failure; N18.9 Chronic kidney disease, unspecified; Z68.1 Body mass index [BMI] 19.9 or less, adult; E87.6 Hypokalemia; F17.210 Nicotine dependence, cigarettes, uncomplicated; F19.20 Other psychoactive substance dependence, uncomplicated; F32.9 Major depressive disorder, single episode, unspecified; F41.9 Anxiety disorder, unspecified; I05.0 Rheumatic mitral stenosis; K76.1 Chronic passive congestion of liver; Z99.81 Dependence on supplemental oxygen; Z88.8 Allergy status to other drugs, medicaments and biological substances
CPT/HCPCS: 10022; 36415; 36600; 49083; 71045; 76705; 76775; 76881; 76942; 80048; 80053; 81001; 82306; 82570; 82805; 83605; 83735; 83880; 83970; 83986; 84100; 84156; 84300; 84484; 84550; 85025; 85610; 85730; 87040; 87081; 87205; 89051; 93451; 96374; 96375; 99152; A4223; J1885; J2250; J2405

== ENCOUNTER 2017-07-05 19:31 | Observation (INO) | payer MEDICAID ==
[~2017-07-05] VITALS: Ht 167.6 cm; Wt 50.8 kg
[~2017-07-05 19:31] MED LIST changes: +ALPR0.25 PO; +DIGO0.1262 PO; +DIP25C PO; +IBUP800T24 PO; -RIOC1TAB9 PO; -SPIR25TA88 PO
[2017-07-05 21:07] LABS: Basophils # (auto) 0.1 uL; Basophils % (auto) 0.8 % (0.0-2.0); Monocytes # (auto) 0.4 uL; Red Blood Cells 4.78 10^6/uL (4.0-5.20)
[2017-07-05 21:09] LABS: Eosinophils # (auto) 0.1 uL; Hematocrit 36.5 % (36.0-46.0); Lymphocytes % (auto) 9.9 % (10.0-50.0); Mean Corpuscular Hemoglobin 25.1 pg (28.0-32.0); Mean Corpuscular Hgb Conc. 32.9 g/dL (32.0-36.0); Mean Corpuscular Volume 76.4 fL (80.0-100.0); Monocytes % (auto) 4.1 % (0.0-12.0); Neutrophils # (auto) 8.9 uL; Neutrophils % (auto) 84.2 % (37.0-80.0); Nucleated Red Blood Cells % 0.1 %; Platelet Count (auto) 251 10^3/uL (140-450); Red Cell Distribution Width 19.2 % (11.8-14.3); White Blood Cell 10.6 10^3/uL (4.4-10.8)
[2017-07-05 21:30] LABS: INR 1.01 (0.9-1.15); Partial Thromboplastin Time 28.4 sec (22.64-33.71)
[2017-07-05 21:34] LABS: Albumin 2.1 g/dL (3.4-5.0); BUN/Creatinine Ratio 20.2; Bilirubin, Total 0.3 mg/dL (0.2-1.0); Calcium 7.5 mg/dL (8.5-10.1); Magnesium 2.3 mg/dL (1.6-2.6); Total Protein 5.3 g/dL (6.4-8.2)
[2017-07-05] MEDS ORDERED: FUROSEMIDE 20 MG/2 ML VIAL IV ONE (22:45)
[2017-07-05] MEDS ORDERED: ONDANSETRON HCL 4 MG/2 ML VIAL IV ONE (23:15)
[2017-07-06 03:02] LABS: Urine Bacteria None Seen /hpf (None Seen)
[2017-07-06 03:36] LABS: Urine Blood Negative /uL (Negative); Urine Specific Gravity 1.015 (1.001-1.035); Urine WBC 8 /hpf (0 - 5)
[2017-07-06 05:22] VITALS: BP 104/79
== END 2017-07-06 05:00 | disposition home or self-care (01) | DRG 194 ==
LOC: EDBD 19:31 → ER 19:31 → OVERFLOW 20:46 → ER 07-06 05:00
PROVIDERS: ADMIT Family Medicine; ATTEND Family Medicine
DX: I11.0 Hypertensive heart disease with heart failure (principal); F32.9 Major depressive disorder, single episode, unspecified; F41.9 Anxiety disorder, unspecified; N18.9 Chronic kidney disease, unspecified
CPT/HCPCS: 36415; 71045; 80053; 80162; 81001; 83605; 83735; 83880; 84443; 84484; 84702; 85025; 85610; 85730; 87040; 96374; 96375; 99285; G0378; J1940; J2405; 93005